=== PATIENT | female | born 1960 | race Caucasian/White ===

== ENCOUNTER 2021-02-13 14:30 | Emergency (ER) | payer MEDICAID, OTHER ==
[~2021-02-13] VITALS: Ht 162.6 cm; Wt 82.0 kg
--- NOTE | 2021-02-13 15:48 | ED.ADGEN ---
Past Medical History Past Surgical History: Pacemaker General Adult EDM: Chief Complaint: MECHANICAL FALL HPI: HPI: Patient is a 60-year-old female who arrives via private vehicle to the emergency department after falling at a local shopping center. Patient reports she was shopping at [employer] when she got her left ankle stuck under a pallet. Patient reports she twisted her left ankle and doing so caused her to fall on her right side. Patient reports she struck her head and now has dizziness after striking her head. Patient also states she hurt the right side of her back and has pain in the migrates all the way down. Patient states despite having these falls, she did not lose consciousness. Additionally she denies any prodromal symptoms prior to falling. Furthermore she denies any shortness of air now. She is awake, alert and nontoxic-appearing. Review of Systems: Review of Systems: Constitutional: Denies fever or chills. [] Eyes: Denies change in visual acuity. [] HENT: Denies nasal congestion or sore throat. [] Respiratory: Denies cough or shortness of breath. [] Cardiovascular: Denies chest pain or edema. [] GI: Denies abdominal pain, nausea, vomiting, bloody stools or diarrhea. [] : Denies dysuria. [] Musculoskeletal: Patient reports right-sided back pain as well as left ankle pain. [] Integument: Denies rash. [] Neurologic: Patient reports a headache and dizziness. She denies focal weakness or sensory changes. [] Endocrine: Denies polyuria or polydipsia. [] Lymphatic: Denies swollen glands. [] Psychiatric: Denies depression or anxiety. [] Allergies: Allergies: Allergies Coded Allergies Type Severity Reaction Last Updated Verified bupropion Allergy Unknown 02/13/21 Yes Physical Exam: PE: Constitutional: Well developed, well nourished, no acute distress, non-toxic appearance. [] HENT: Normocephalic, atraumatic, bilateral external ears normal, oropharynx moist, no oral exudates, nose normal. [] Eyes: PERRLA, EOMI, conjunctiva normal, no discharge. [] Neck: Normal range of motion, no tenderness, supple, no stridor. [] Cardiovascular:Heart rate regular rhythm, no murmur [] Lungs & Thorax: Bilateral breath sounds clear to auscultation [] Abdomen: Bowel sounds normal, soft, no tenderness, no masses, no pulsatile masses. [] Skin: Warm, dry, no erythema, no rash. [] Back: Patient has mild tenderness of the ribs at the posterior aspect of her back at the right side. There is no CVA tenderness. [] Extremities: Patient has minimal tenderness of the left ankle without obvious dislocation or deformity. No cyanosis, no clubbing, ROM intact, no edema. [] Neurologic: Alert and oriented X 3, normal motor function, normal sensory function, no focal deficits noted. [] Psychologic: Affect normal, judgement normal, mood normal. [] Current Patient Data: Vital Signs: Vital Signs Date Time Temp Pulse Resp B/P (MAP) Pulse Ox O2 Delivery O2 Flow Rate FiO2 02/13/21 15:39 98.4 117 18 146/97 (113) 96 Room Air 98.4 EKG: EKG: [] EKG was obtained at 1621 hrs. and reveals a supraventricular rhythm with a ventricular rate of 96 bpm. There is left axis deviation present with a left anterior fascicular block as well. There are no acute ST/T wave changes to denote ischemia otherwise. Heart Score: C/O Chest Pain: No Risk Factors: Risk Factors: DM, Current or recent (<one month) smoker, HTN, HLP, family history of CAD, obesity. Risk Scores: Score 0 - 3: 2.5% MACE over next 6 weeks - Discharge Home Score 4 - 6: 20.3% MACE over next 6 weeks - Admit for Clinical Observation Score 7 - 10: 72.7% MACE over next 6 weeks - Early Invasive Strategies Radiology/Procedures: Radiology/Procedures: [] Impression: [facility] [address] [place] [address] IMAGING REPORT Signed PATIENT: KATARINA JIMENEZ FACCOUNT: [id number] : 1960 LOCATION: ER AGE: 60 SEX: F EXAM STATUS: REG ER ORD. PHYSICIAN: KARTIK HERNANDEZ DO REASON: fall/injury PROCEDURE: ANKLE LEFT 3V EXAMINATION: Left ankle radiograph. VIEWS: 2 views COMPARISON: None INDICATION:60 years, Female, fall/injury. FINDINGS: No acute fracture. The ankle mortise is congruent. No significant soft tissue swelling. IMPRESSION: No acute osseous process. Electronically signed by: Sayda Finnegan DO (02/13/2021 3:57 PM) [id number] DICTATED and SIGNED BY: SAYDA FINNEGAN DO DATE: 02/13/21 [id number] [facility] [address] [place] [address] IMAGING REPORT Signed PATIENT: KATARINA JIMENEZ FACCOUNT: [id number] : 1960 LOCATION: ER AGE: 60 SEX: F EXAM STATUS: REG ER ORD. PHYSICIAN: KARTIK HERNANDEZ DO REASON: Fall/injury PROCEDURE: RIBS RIGHT AND PA CHEST Ribs right with PA chest History: Pain status post fall PA view of the chest and dedicated views of the left ribs were obtained. The heart and pulmonary vessels appear normal. The lungs and pleural margins are clear. There is a left-sided dual-lead pacemaker. The visualized osseous structures appear intact. Impression: No acute findings. No evidence of a bony displaced rib fracture. Electronically signed by: Gisela Ziegler III, MD (02/13/2021 3:58 PM) [facility] DICTATED and SIGNED BY: GISELA ZIEGLER III, MD DATE: 02/13/21 [id number] 0 [facility] [address] [place] [address] IMAGING REPORT Signed PATIENT: KATARINA JIMENEZ FACCOUNT: [id number] : 1960 LOCATION: ER AGE: 60 SEX: F EXAM STATUS: REG ER ORD. PHYSICIAN: KARTIK HERNANDEZ DO REASON: head injury [phone] PROCEDURE: CT HEAD WO CONTRAST Exam: CT head INDICATION: Head injury TECHNIQUE: Sequential axial images through the head were obtained without the administration of IV contrast. Exposure: One or more of the following in the visualized dose reduction techniques were utilized for this examination: 1. Automated exposure control 2. Adjustment of the MA and/or KV according to patient size 3. Use of iterative of reconstructive technique Comparisons: None FINDINGS: No focal parenchymal lesion or hemorrhage is identified. There is no midline shift or sulcal effacement. No acute vascular territory infarction is identified. Kahn-white distinction is preserved. The ventricular system is within normal limits without compression hydrocephalus. The basal cisterns are well maintained. The visualized portions of the paranasal sinuses and mastoid air cells are well- pneumatized. No acute fractures. IMPRESSION: No acute intracranial abnormality. Electronically signed by: Babatunde Ramsey MD (02/13/2021 4:09 PM) [facility] DICTATED and SIGNED BY: BABATUNDE RAMSEY MD DATE: 02/13/21 [id number] 0 [facility] [address] [place] [address] IMAGING REPORT Signed PATIENT: KATARINA JIMENEZ FACCOUNT: [id number] : 1960 LOCATION: ER AGE: 60 SEX: F EXAM STATUS: REG ER ORD. PHYSICIAN: KARTIK HERNANDEZ DO REASON: Fall/injury PROCEDURE: HUMERUS RIGHT Exam: Right humerus 2 views INDICATION: Fall/injury TECHNIQUE: Frontal, and lateral views of the right humerus Comparisons: None FINDINGS: Bone mineralization is normal. No acute or healed fractures. Soft tissues are unremarkable. Joint spaces are well-maintained. IMPRESSION: No acute osseous abnormality Electronically signed by: Babatunde Ramsey MD (02/13/2021 5:35 PM) [facility] DICTATED and SIGNED BY: BABATUNDE RAMSEY MD DATE: 02/13/21 [id number] Course & Med Decision Making: Course & Med Decision Making Pertinent Labs and Imaging studies reviewed. (See chart for details) The patient remains awake, alert and in no acute distress. Imaging performed does not reveal any acute injury. The patient did complain of right arm pain that discharge and as such an x-ray was ordered to evaluate for any possible injury. Upon review the image, there is no acute fracture or dislocation present. The patient was discharged with instructions which did include those of a contusion. Dragon Disclaimer: Dragon Disclaimer: This electronic medical record was generated, in whole or in part, using a voice recognition dictation system. Departure Departure Impression: Primary Impression: Closed head injury Additional Impressions: Thoracic myofascial strain Left ankle sprain Contusion of right upper arm Disposition: HOME / SELF CARE / HOMELESS Condition: STABLE Referrals: UNKNOWN PCP NAME (PCP) Patient Instructions: Ankle Sprain, Contusion, Head Injury, Adult Scripts Hydrocodone Bit/Acetaminophen (HYDROCODONE-APAP 5-325 ) 1 Tab Tablet 1 TAB PO PRN Q6HRS PRN for PAIN for 3 Days, #12 TAB 0 Refills Prov: KARTIK HERNANDEZ DO 02/13/21 Problem Qualifiers KARTIK HERNANDEZ DO Feb 13, 2021 15:48
--- NOTE | 2021-02-13 15:59 | RAD ---
EXAMINATION: Left ankle radiograph. VIEWS: 2 views COMPARISON: None INDICATION:60 years, Female, fall/injury. FINDINGS: No acute fracture. The ankle mortise is congruent. No significant soft tissue swelling. IMPRESSION: No acute osseous process. Electronically signed by: Ravi Finnegan DO (02/13/2021 3:57 PM) [id number]
--- NOTE | 2021-02-13 16:00 | RAD ---
Ribs right with PA chest History: Pain status post fall PA view of the chest and dedicated views of the left ribs were obtained. The heart and pulmonary vessels appear normal. The lungs and pleural margins are clear. There is a le ft-sided dual-lead pacemaker. The visualized osseous structures appear intact. Impression: No acute findings. No evidence of a bony displaced rib fracture. Electronically signed by: Fran Goyal III, MD (02/13/2021 3:58 PM) [facility]
--- NOTE | 2021-02-13 16:12 | RAD ---
Exam: CT head INDICATION: Head injury TECHNIQUE: Sequential axial images through the head were obtained without the administration of IV co ntrast. Exposure: One or more of the following in the visualized dose reduction techniques were utilized for this examination: 1. Automated exposure control 2. Adjustment of the MA and/or KV according to patient size 3. Use of iterative of reconstructive technique Comparisons: None FINDINGS: No focal parenchymal lesion or hemorrhage is identified. There is no midline shift or sulcal effaceme nt. No acute vascular territory infarction is identified. Kahn-white distinction is preserved. The ventricular system is within normal limits without compression hydrocephalus. The basal cisterns are well maintained. The visualized portions of the paranasal sinuses and mastoid air cells are well-pneumatized. No acute fractures. IMPRESSION: No acute intracranial abnormality. Electronically signed by: Babatunde Ryena MD (02/13/2021 4:09 PM) [facility]
[2021-02-13] MEDS ORDERED: HYDR-2761 PO (16:28)
--- NOTE | 2021-02-13 17:08 | EKG ---
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
--- NOTE | 2021-02-13 17:37 | RAD ---
Exam: Right humerus 2 views INDICATION: Fall/injury TECHNIQUE: Frontal, and lateral views of the right humerus Comparisons: None FINDINGS: Bone mineralization is normal. No acute or healed fractures. Soft tissues are unremarkable. Joint spa carey are well-maintained. IMPRESSION: No acute osseous abnormality Electronically signed by: Babatunde Reyna MD (02/13/2021 5:35 PM) [facility]
[2021-02-13 17:55] VITALS: BP 148/86
== END 2021-02-13 18:18 | disposition home or self-care (01) ==
LOC: ER 14:30
DX: S93.402A Sprain of unspecified ligament of left ankle, initial encounter (principal); S29.012A Strain of muscle and tendon of back wall of thorax, initial encounter; S40.021A Contusion of right upper arm, initial encounter; R51.9 Headache, unspecified; R42 Dizziness and giddiness; W18.39XA Other fall on same level, initial encounter; Y93.89 Activity, other specified; Y92.89 Other specified places as the place of occurrence of the external cause; Y99.8 Other external cause status
CPT/HCPCS: 70450; 71101; 73060; 73610; 93005; 99285-25